=== PATIENT | female | born 1955 | race Caucasian/White ===

== ENCOUNTER → 2024-05-25 | Outpatient (CLI) | payer OTHER ==
[~2024-05-25] MED LIST: ASPI81EC; CHOL10002 PO; CITA10S PO; CLON.5 PO; DESL5 PO; MULVITMIND; TACLONEX TOP; TAMO10 PO
[2024-05-27 12:35] LABS: Stool Occult Bld Immuno 1 Negative (NEGATIVE)
== END ==
LOC: LAB SHORT 10:32 → LAB 10:32
PROVIDERS: Physician Assistant
DX: Z12.11 Encounter for screening for malignant neoplasm of colon (principal)
CPT/HCPCS: G0328

== ENCOUNTER → 2025-03-08 | Outpatient (CLI) | payer MEDICARE | END | disposition home or self-care (01) | LOC: LAB 16:08 → LAB SHORT 16:08 | DX: R30.0 Dysuria (principal) | CPT/HCPCS: 87077; 87086; 87186 ==